=== PATIENT | male | born 2000 | race Caucasian/White ===

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

== ENCOUNTER 2019-12-31 01:45 | Emergency (ER) | payer OTHER ==
[~2019-12-31] VITALS: Ht 177.8 cm; Wt 62.3 kg
[2019-12-31] MEDS ORDERED: LORazepam 2 MG TABLET PO ONE (02:30)
[2019-12-31] MEDS ORDERED: ONDANSETRON HCL 4 MG/2 ML VIAL IM ONE (02:45)
[2019-12-31] MEDS ORDERED: LORazepam 2 MG/ML VIAL IM ONE (02:45)
[2019-12-31 03:00] VITALS: BP 136/87
== END 2019-12-31 03:00 | disposition home or self-care (01) ==
LOC: EMS 01:45
DX: F41.9 Anxiety disorder, unspecified (principal); F12.90 Cannabis use, unspecified, uncomplicated; J45.909 Unspecified asthma, uncomplicated
CPT/HCPCS: 96372; 99284; J2060; J2405